=== PATIENT | male | born 1965 | race Hispanic/Latino ===

== ENCOUNTER 2016-08-04 11:54 | Day surgery (SDC) | payer OTHER ==
[~2016-08-04] VITALS: Ht 177.8 cm; Wt 91.5 kg
[2016-08-04] VITALS (10 sets, daily range): BP systolic 134–149; BP diastolic 86–102; PULSE 71–85; RESP 13–20; O2SAT 96–98
[~2016-08-04 11:54] MED LIST: CeFAZolin 2 Gm/50 mL D5W IV Premix IV ONE
[2016-08-04] MEDS ORDERED: HYDROmorphone 2 mg/mL Inj ONE (11:55)
[2016-08-04] MEDS ORDERED: MetoCLOpramide 5 mg/mL 2 mL Inj ONE (11:55)
[2016-08-04] MEDS ORDERED: Dexamethasone 4 mg/mL Inj ONE (11:55)
[2016-08-04] MEDS ORDERED: fentaNYL-PF 50 mCg/mL 2 mL Inj ONE (11:55)
[2016-08-04] MEDS ORDERED: Ondansetron 2 mg/mL 2 mL Inj ONE (11:55)
[2016-08-04] MEDS ORDERED: Propofol 10,000 mCg/mL 20 mL Inj ONE (11:55)
[2016-08-04] MEDS ORDERED: Phenylephrine/NS 100 mCg/mL 10 mL Syringe IVPUSH ONE (11:55)
[2016-08-04] MEDS ORDERED: Ropivacaine-PF 0.5% 30 mL Inj ONE (11:55)
[2016-08-04] MEDS ORDERED: CeFAZolin 2 Gm/50 mL D5W Duplex Bag IV ONE (12:29)
[2016-08-04] MEDS: Lactated Ringer's 1,000 ML IV SCH ×2 (12:52→13:20)
[2016-08-04] MEDS ORDERED: Lactated Ringer's 500 ML IV PRN (16:02)
[2016-08-04] MEDS ORDERED: Lactated Ringer's 1,000 ML IV SCH (16:02)
--- NOTE | 2016-08-04 16:03 | PCM.HPANE ---
Patient Data Surgeon Admitting Provider: Attending Provider:Kevin Kim MD Primary Care Physician:Christopher Slade MD Other Provider:Anyi Munguiaingham Anesthesia Reason for Visit Right Knee Anterior Cruciate Ligament Sprain Ht/WT & BMI Height (Feet): 5 Height (Inches): 10 Weight (Kilograms): 88.81 Body Mass Index 28.00 Allergies Coded Allergies: No Known Allergies (Verified , 05/30/16) Past Anesthesia History Anesthesia History: Denies:: Anesthesia Reactions, Fam Anesthesia Reaction Diabetes History Hx Diabetes?: No MRSA MRSA: No Medications Discontinued Scripts Docusate Sodium (Colace)100 Mg [id number] Mg PO DAILY PRN For Constipation #30 CAPSULE Prov:Meenakshi Yun MD 05/30/16 Hydrocodone-Acetaminophen 5-325 mg 1 Each Tablet1 Tablet PO Q4H PRN For Pain # 10 TABLET Prov:Meenakshi Yun MD 05/30/16 History History of ENT Problems?: No Hx of Heart Problems?: No Hx of Respiratory Problem?: No Respiratory History: Denies:: Asthma COPD Oxygen Administration Pneumonia Tuberculosis Use of C-PAP Machine Use of Inhalers / NEBS Hx Neurologic Problems?: No Neurological History: Denies:: CVA Headaches Multiple Sclerosis Parkinson's Disease Seizures Hx of GI Problems?: No Gastrointestinal History: Denies:: Gall Bladder Disease Gastroesphageal Reflux Heartburn Hx of Problems?: No Male Hx: Denies:: Prostate Problems Skin History: Denies:: History Skin Disorders? Pressure Ulcers Hx Musculoskeletal Problems?: Yes Musculoskeletal History: Positive for:: Musculoskeletal Trauma (left knee current admission problem- DOI 05/30/16) Hx of Psycho/Social Problems?: No Psycho Social History: Denies:: Anxiety Hx Depression Hx Surgeries?: Yes (hernia) Hx Any Other Health Problems?: Yes Other History: Denies:: Cancer Thyroid Disease Hx Diabetes: No Hx Alcohol Use: YesAlcoholic Drinks Per Day: 3-4 drinks dailyHx Substance Use : No Smoking Status: Smoker Current Status UNK Have You Smoked inLast 12 mo: No Stop/Bang P-Blood Pressure: treated: No B- Body Mass Index > 35 kg/m2: No A- Age over 50: Yes N- Neck Large Circumference: No G- Gender Male: Yes Risk Assessment Category Category 1A: Patient has history of documented sleep apnea, and HAS NOT received any narcotic, sedative or anesthesia administration during this stay. Category 1B: Patient has history of documented sleep apnea, and HAS received any narcotic , sedative or anesthesia administration during this stay Category 2: Patient has SUSPECTED Obstructive Sleep Apnea, and HAS received any narcotic , sedative or anesthesia administration during this stay. Category 3: Patient has SUSPECTED Obstructive Sleep Apnea and HAS NOT received narcotic, sedative or anesthesia administration during this stay. Category 4: Outpatient in Procedural Areas with known sleep apnea or who screen positive for High Risk via the STOP/BANG questionnaire. Exam Exam General Appearance: Alert, Oriented X3, Cooperative, No Acute Distress HEENT/AIRWAY: MP 2 Lungs: Clear to Auscultation Heart: Exam Unremarkable Plan Impression Patient chart reviewed, patient interviewed and anesthestic plan with risks, benefits, and alternatives discussed, and informed consent obtained. ASA Physical Status: ASA2 Mod Systemic Disease Anesthetic Plan: GA, Regional Block (fnb) Bene/Risks/Altern/Consents: Yes HP Complete Prior to Induction: Yes Skyler Perry MD Aug 04, 2016 09:04
[2016-08-04] MEDS ORDERED: EPHEDrine Sulfate 50 mg/mL Inj IVPUSH PRN (16:05)
[2016-08-04] MEDS ORDERED: Phenylephrine 10,000 mCg/mL Inj IVPUSH PRN (16:05)
[2016-08-04] MEDS ORDERED: MetoCLOpramide 5 mg/mL 2 mL Inj IVPUSH PRN (16:05)
[2016-08-04] MEDS ORDERED: fentaNYL-PF 50 mCg/mL 2 mL Inj IVPUSH PRN (16:05)
[2016-08-04] MEDS ORDERED: HYDROmorphone 1 mg/mL Inj IVPUSH PRN (16:05)
[2016-08-04] MEDS ORDERED: Dexamethasone 4 mg/mL Inj IVPUSH PRN (16:05)
[2016-08-04] MEDS ORDERED: Ondansetron 2 mg/mL 2 mL Inj IVPUSH PRN (16:05)
[2016-08-04] MEDS ORDERED: HYDROcodone-APAP 5-325 mg Tablet PO PRN (16:25)
[2016-08-04] MEDS ORDERED: oxyCODONE-Acetamin 5-325 mg Tablet PO PRN (16:25)
[2016-08-04] MEDS ORDERED: HYDROcodone-APAP 7.5-325 mg Tablet PO PRN (16:25)
--- NOTE | 2016-08-04 16:27 | PCM.ANEP1 ---
Post Anesthesia Phase 1 PACU Phase 1 Assessment Vital Signs Vital Signs Date Time Temp Pulse Resp B/P Pulse Ox O2 Delivery O2 Flow Rate FiO2 08/04/16 16:25 36.8 85 16 134/92 96 Room Air 08/04/16 12:58 37.3 75 20 149/102 97 Room Air Anesthetic Administered: GA, Regional Block Level of Alertness: Sleepy, easy to arouse LAMB's with Equal Strength: Yes Pain: No Nausea or Vomiting: No Oxygen Delivery: Room Air Lungs: Clear to Auscultation Dermatome Level: Full Sensation Skyler Perry MD Aug 04, 2016 16:27
--- NOTE | 2016-08-04 16:32 | PCM.ORTHOB ---
Immediate Operative Note Date of Service: Aug 04, 2016 Pre Operative Diagnosis Left knee anterior cruciate ligament tear, lateral meniscal bucket handle tear and medial meniscal tear Post Operative Diagnosis Same Procedure Left knee arthroscopic assisted anterior cruciate ligament reconstruction with allograft and partial lateral and partial medial meniscectomies Surgeon Surgeon: Kevin Kim MD Assistants: Kartik Gallo PA-C Findings Preoperative exam under anesthesia of the left knee revealed a 2+ positive Katerina examand a positive pivot shift test. 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 Bucket handle tear of lateral meniscus involving the majority of the posterior horn and body to the anterior horn. Medial meniscal tear at the junction of the body and the posterior horn extending into the posterior horn. Mild medial compartment degenerative changes with grade 1-2 chondromalacia affecting the majority of the weightbearing surface of medial femoral condyle and tibial articular surface. Mild degenerative changes in the lateral compartment with diffuse grade 1-2 chondromalacia affecting the majority weightbearing portion of the lateral femoral condyle and tibial articular surface. No loose bodies noted in the gutters. Patellofemoral compartment showed early degenerative changes. No sign of tibial plateau fracture in medial or lateral compartments. The knee was stable with full range of motion, negative Katerina exam and negative pivot shift exam following anterior cruciate ligament reconstruction with double stranded anterior tibial tendon allograft using Arthrex FlipCutter II for retro- drilling of the tibial tunnel and Arthrex anterior cruciate ligament TightRope RT femoral fixation and Arthrex 10 mm GraftBolt tibial fixation. There was no visualized impingement of the anterior cruciate ligament graft in full extension on the femoral notch or with range of motion and full flexion. Grafts, Implants: Implants-See Implant Record Complications There were no periprocedural complications identified. Condition Stable Anesthetic Administered: GA, Regional Block Drains: None Catheters: None Output, Estimated Blood Loss: 50 Blood Admin during surgery: No Surgical Cast or Splint: Post-op Knee Brace Additional Information Tourniquet time 136 minutes Surgical Specimen Removed: No Surgical Specimen sent to Path: No Post Operative Plan The patient will be discharged from daycare surgery when protocol is met. The patient has been placed into a postop hinged motion control brace. Patient should have the brace on and locked at 0 extension when mobilizing using crutches. The patient may touch down weight bear through the left lower extremity. The patient may range his knee in or out of the motion control brace 0-60 degrees flexion. The patient will be seen in the orthopedic clinic for wound check postop day #5 or later. Postop anterior cruciate ligament rehabilitation protocol will be initiated at follow-up and supervised with the patient's physical therapist. The patient may have skin sutures removed postop day #12 or later. Kevin Kim MD Aug 04, 2016 16:32
--- NOTE | 2016-08-04 16:52 | PCM.ORTHOP ---
Orthopedic Operative Report Date of Service: Aug 04, 2016 Pre Operative Diagnosis Left knee anterior cruciate ligament tear, lateral meniscal bucket handle tear and medial meniscal tear Post Operative Diagnosis Same Procedure Left knee arthroscopic assisted anterior cruciate ligament reconstruction with allograft and partial lateral and partial medial meniscectomies Surgeon Surgeon: Kevin Kim MD Assistants: Kartik Gallo PA-C Indication for Procedure Patient is a 50-year-old gentleman who injured his left knee while riding a horse 05/30/2016. The patient was accidentally thrown from the horse and sustained a nondisplaced left knee tibial plateau fractures in addition to a left knee anterior cruciate ligament tear, lateral meniscus bucket handle tear and medial meniscal posterior horn tear confirmed on preoperative knee MRI. The patient has been managed nonoperatively while his tibial plateau fracture healed. Serial radiographs confirmed the fracture to have healed and nondisplaced position. The patient continues to experience knee instability, locking and catching pain related to his anterior cruciate ligament rupture and meniscal tears. The patient presents for left knee anterior cruciate ligament reconstruction with allograft and arthroscopic partial lateral and medial meniscectomies. The skilled assistance of a physician's bilingual legal assistant, Kartik Gallo PA-C, was necessary for the successful completion of this case. The PA was essential for the proper positioning, manipulation of instruments, proper exposure, manipulation of tissues and wound closure. Findings Preoperative exam under anesthesia of the left knee revealed a 2+ positive Katerina examand a positive pivot shift test. 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 Bucket handle tear of lateral meniscus involving the majority of the posterior horn and body to the anterior horn. Medial meniscal tear at the junction of the body and the posterior horn extending into the posterior horn. Mild medial compartment degenerative changes with grade 1-2 chondromalacia affecting the majority of the weightbearing surface of medial femoral condyle and tibial articular surface. Mild degenerative changes in the lateral compartment with diffuse grade 1-2 chondromalacia affecting the majority weightbearing portion of the lateral femoral condyle and tibial articular surface. No loose bodies noted in the gutters. Patellofemoral compartment showed early degenerative changes. No sign of tibial plateau fracture in medial or lateral compartments. The knee was stable with full range of motion, negative Katerina exam and negative pivot shift exam following anterior cruciate ligament reconstruction with double stranded anterior tibial tendon allograft using Arthrex FlipCutter II for retro- drilling of the tibial tunnel and Arthrex anterior cruciate ligament TightRope RT femoral fixation and Arthrex 10 mm GraftBolt tibial fixation. There was no visualized impingement of the anterior cruciate ligament graft in full extension on the femoral notch or with range of motion and full flexion. Details of Procedure Patient was brought to the OR where he received a left femoral block performed by the anesthesia service. He was then given a general anesthetic and placed in the supine position. An exam under anesthesia revealed the left knee to have a positive pivot shift test and positive Katerina exam a 2+. A tourniquet was placed high about the left thigh. The left lower extremity was prepped and draped in usual sterile fashion. Tourniquet was inflated to 250 mmHg. We placed 2 infrapatellar arthroscopic portals, one medial and one lateral. We inserted the arthroscope and instilled lactated Ringer's with epinephrine into the knee joint. We confirmed the presence of a chronic appearing, complete rupture of the anterior cruciate ligament with avulsion from the tibial insertion site and femoral origin. We also confirmed a displaced lateral meniscal bucket handle tear and tear of the medial meniscal posterior horn. We debride At the anterior cruciate ligament remnant using arthroscopic shaver and thermal ablator. Used the arthroscopic shaver and basket biting forceps to perform partial lateral and medial meniscectomies. We noted mild degenerative changes in the medial and lateral compartments. No tibial plateau fractures or evidence of healed fractures were noted. We proceeded with our anterior cruciate ligament reconstruction using a double-stranded tibialis anterior allograft prepared with the Arthrex FiberLoop whip stitched for graft passage. A 3 cm longitudinal incision was placed just anterior to the distal iliotibial band overlying the lateral femoral condyle. Sharp dissection was taken down through the IT band to the bone. We used the Arthrex 10 mm FlipCutter II to retro-drill a 10 mm osseus tunnel at 105 in the lateral femoral condyle exiting at the center of the anterior cruciate ligament footprint in the bifurcate ridge approximately 43% the posterior to anterior distance of the lateral femoral condyle articular surfaces. We passed a fiber stick and FiberWire passing suture through the 43 mm femoral tunnel with 25 mm bony socket. We then created our tibial osseus tunnel in an outside in fashion using the Arthrex tibial guide sleeve set at 55. A 6 cm longitudinal incision was made 3 cm distal to the medial joint line overlying the presence or redness. Incision was taken down through subcutaneous tissues, through the pad as, to the bone. A cannulated 10 mm drill was used over our previously placed guidewire exiting the tibial anterior cruciate ligament footprint creating our outside in tibial tunnel. The graft passing suture was then passed from the inside of the joint out through the tibial osseus tunnel. We used the graft passing suture attached to the previously prepared anterior cruciate ligament graft now attached to the Arthrex anterior cruciate ligament TightRope II to draw the anterior cruciate ligament graft through the tibial tunnel and into the femoral socket under arthroscopic visualization. We engaged the anterior cruciate ligament TightRope II button and tightened anterior cruciate ligament graft into the bony sockets. The graft was secured in the tibial tunnel with placement of an Arthrex 10 mm Tibial GraftBolt. We cycled the knee and made final tightening of o graft. Intraoperative arthroscopic visualization confirmed the graft to be stable and not impinge from 0 extension through full flexion. Intraoperative Katerina and pivot shift exams were both negative. We thoroughly irrigated the knee and wounds. We closed the distal lateral thigh wound with 2-0 Vicryl for repair of the fascial moo rent and subcutaneous tissues. 4-0 Prolene was used in subcuticular fashion to close the skin. 2-0 Vicryl was used in running fashion to close the areas fascia and subcutaneous tissues. 3-0 Prolene was used in a subcuticular fashion to close the skin. The arthroscopic portals were closed with interrupted 3-0 Prolene skin sutures. The wounds were dressed with Xeroform and dry gauze dressings. The tourniquet was deflated. The patient was placed into a motion control postop knee brace and taken back to PACU in stable and satisfactory condition. There were no complications. The patient tolerated the procedure well. Grafts, Implants: Implants-See Implant Record Complications There were no periprocedural complications identified. Condition Stable Anesthetic Administered: GA, Regional Block Drains: None Catheters: None Output, Estimated Blood Loss: 50 Blood Admin during surgery: No Surgical Cast or Splint: Post-op Knee Brace Addtional Information Tourniquet time 136 minutes Surgical Specimen Removed: No Specimen sent to Pathology: No Post Operative Plan The patient will be discharged from daycare surgery when protocol is met. The patient has been placed into a postop hinged motion control brace. Patient should have the brace on and locked at 0 extension when mobilizing using crutches. The patient may touch down weight bear through the left lower extremity. The patient may range his knee in or out of the motion control brace 0-60 degrees flexion. The patient will be seen in the orthopedic clinic for wound check postop day #5 or later. Postop anterior cruciate ligament rehabilitation protocol will be initiated at follow-up and supervised with the patient's physical therapist. The patient may have skin sutures removed postop day #12 or later. copies to: Christopher Slade MD; Kevin Kim MD, Michael G.E MD Aug 04, 2016 16:52
--- NOTE | 2016-08-04 16:57 | DRSVH ---
PROCEDURE: X-RAY LEFT KNEE, ONE OR TWO VIEWS ([id number]) INDICATIONS: POST OPERATIVE TECHNIQUE: 2 views of the knee were acquired. COMPARISON: None. FINDINGS: Bones: No fractures or dislocations. Tendon anchor at the lateral aspect of the lateral femoral cond yle is present. No suspicious bony lesions. Soft tissues: Gas within the joint is present. No joint effusion. No suspicious soft tissue calcific ations. IMPRESSION: Postsurgical sequelae. Dictated by: Jillian Costa M.D. on 08/04/2016 at 16:55 Approved by: Jillian Costa M.D. on 08/04/2016 at 16:55
--- NOTE | 2016-08-04 22:06 | PCM.ANEP2 ---
Post Anesthesia Evaluation ASA/CMS Post Anesthesia VS in Patient's Normal Range?: Yes Resp Stable; Airway Patent?: Yes CV Function & Hydration Stable: Yes Mental Status Recovered?: Yes Pain control Satisfactory?: Yes N/V Control Satisfactory?: Yes Skyler Perry MD Aug 04, 2016 22:06
== END 2016-08-04 23:59 | disposition home or self-care (01) ==
LOC: SAS 11:54
PROVIDERS: ATTEND Orthopaedic Surgery
DX: S83.512A Sprain of anterior cruciate ligament of left knee, initial encounter (principal); S83.242A Other tear of medial meniscus, current injury, left knee, initial encounter; S82.132A Displaced fracture of medial condyle of left tibia, initial encounter for closed fracture; S83.252A Bucket-handle tear of lateral meniscus, current injury, left knee, initial encounter; V80.010A Animal-rider injured by fall from or being thrown from horse in noncollision accident, initial encounter; W55.12XA Struck by horse, initial encounter; Y93.52 Activity, horseback riding; Y92.9 Unspecified place or not applicable
CPT/HCPCS: 29880; 29888; 73560; 76942; C1713; C1762; J0690; J1100; J1170; J2250; J2370; J2405; J2765; J2795; J7120